=== PATIENT | male | born 1980 | race Caucasian/White ===

== ENCOUNTER 2018-05-11 12:51 | Emergency (ER) | payer SELFPAY ==
[~2018-05-11] VITALS: Ht 193 cm; Wt 81.6 kg
[2018-05-11 14:21] VITALS: BP 134/90
[2018-05-11] MEDS ORDERED: CLINDAMYCIN 600 MG/4 ML VL IM ONE (15:15)
== END 2018-05-11 15:25 | disposition home or self-care (01) ==
LOC: ER 12:56
DX: L03.116 Cellulitis of left lower limb (principal); F17.210 Nicotine dependence, cigarettes, uncomplicated; F12.10 Cannabis abuse, uncomplicated; Z88.0 Allergy status to penicillin; Z59.0 Homelessness; W57.XXXA Bitten or stung by nonvenomous insect and other nonvenomous arthropods, initial encounter; Y93.89 Activity, other specified; Y99.8 Other external cause status; Y92.89 Other specified places as the place of occurrence of the external cause
CPT/HCPCS: 73590; 73600

== ENCOUNTER 2019-10-21 05:35 | Emergency (ER) | payer MEDICAID ==
[~2019-10-21] VITALS: Ht 193 cm; Wt 81.6 kg
[2019-10-21 10:52] VITALS: BP 112/72
[2019-10-21] MEDS: IBUPROFEN 800 MG TAB PO ONE ×2 (11:13→11:14)
== END 2019-10-21 11:39 | disposition home or self-care (01) ==
LOC: ER 05:35
DX: S93.402A Sprain of unspecified ligament of left ankle, initial encounter (principal); F17.210 Nicotine dependence, cigarettes, uncomplicated; Z88.0 Allergy status to penicillin; V23.4XXA Motorcycle driver injured in collision with car, pick-up truck or van in traffic accident, initial encounter; Y93.55 Activity, bike riding; Y92.410 Unspecified street and highway as the place of occurrence of the external cause; Y99.8 Other external cause status
CPT/HCPCS: 73600

== ENCOUNTER 2024-05-28 04:20 | Emergency (ER) | payer MEDICAID | END 2024-05-28 05:13 | disposition left against medical advice (07) | LOC: ER 04:20 | DX: T63.301A Toxic effect of unspecified spider venom, accidental (unintentional), initial encounter (principal); Z53.21 Procedure and treatment not carried out due to patient leaving prior to being seen by health care provider; Y92.89 Other specified places as the place of occurrence of the external cause ==